=== PATIENT | female | born 1960 ===

== ENCOUNTER 2025-03-12 09:17 | Day surgery (SDC) | payer BC ==
[~2025-03-12] VITALS: Ht 165.1 cm; Wt 62.3 kg
[~2025-03-12 09:17] MED LIST: Lactated Ringer's 1,000 ML IV ONE; propofoL 50 ML IV ONE
[2025-03-12] MEDS ORDERED: Simvastatin40 MG (09:28)
[2025-03-12] MEDS ORDERED: OMEP20ER (09:28)
[2025-03-12] MEDS ORDERED: ALBUTEROL SULFATE HF (09:28)
[2025-03-12] MEDS ORDERED: FAMO20 (09:29)
[2025-03-12] MEDS ORDERED: PROZAC2010 (09:29)
[2025-03-12] MEDS ORDERED: DOXY100 (09:29)
[2025-03-12] MEDS ORDERED: Lactated Ringer's 1,000 ML IV ONE (10:26)
--- NOTE | 2025-03-12 11:10 | NUR ---
03/12/25 1109 MALGORZATA BARAJAS RN IS CHARTING UNDER JENNIFER MCGARRY WHO IS TRAINING W/JENNIFER CANTU. JENNIFER CANTU IS UNABLE TO SIGN INTO [facility].
== END 2025-03-12 12:21 | disposition home or self-care (01) ==
LOC: ORSCSDS 09:17
PROVIDERS: Internal Medicine Gastroenterology
PROC: 0DBN8ZX Excision of Sigmoid Colon, Via Natural or Artificial Opening Endoscopic, Diagnostic (ICD-10-PCS; principal; 2025-03-12 11:00)
PROC: 0DBH8ZX Excision of Cecum, Via Natural or Artificial Opening Endoscopic, Diagnostic (ICD-10-PCS; principal; 2025-03-12 11:00)
PROC: 0DB78ZX Excision of Stomach, Pylorus, Via Natural or Artificial Opening Endoscopic, Diagnostic (ICD-10-PCS; principal; 2025-03-12 11:00)
DX: R19.4 Change in bowel habit (principal); K62.5 Hemorrhage of anus and rectum; Z86.0101 Personal history of adenomatous and serrated colon polyps; K21.9 Gastro-esophageal reflux disease without esophagitis; R10.13 Epigastric pain; D12.0 Benign neoplasm of cecum; D12.5 Benign neoplasm of sigmoid colon; Z85.42 Personal history of malignant neoplasm of other parts of uterus; K57.30 Diverticulosis of large intestine without perforation or abscess without bleeding; Z79.899 Other long term (current) drug therapy; J45.909 Unspecified asthma, uncomplicated
CPT/HCPCS: 88305; 88342; J2704; J7120